=== PATIENT | female | born 1940 | race Caucasian/White ===

== ENCOUNTER 2017-03-11 14:07 | Emergency (ER) | payer MEDICARE, MEDICAID ==
[~2017-03-11] VITALS: Ht 162.6 cm; Wt 102.3 kg
[~2017-03-11 14:07] MED LIST: ARIP5TAB9 PO; ATEN50TA PO; ATOR20TA86 PO; LITH300C3 PO; LOSA50TA37 PO; SERT100T12 PO
[2017-03-11 15:04] LABS: BASOPHILS # (AUTO) 0.07 K/uL (0.00-0.20); BASOPHILS % (AUTO) 0.7 % (0.0-2.0); EOSINOPHILS # (AUTO) 0.24 K/uL (0.00-0.70); HEMATOCRIT 41.8 % (36-46); HEMOGLOBIN 13.8 g/dL (12.0-16.0); LYMPHOCYTES # (AUTO) 1.4 K/uL (1.0-4.8); LYMPHOCYTES % (AUTO) 12.8 % (22.0-44.0); MEAN CORPUSCULAR HEMOGLOBIN 32.2 pg (26.0-34.0); MEAN CORPUSCULAR VOLUME 97 fL (80-100); MONOCYTES # (AUTO) 0.8 K/uL (0.1-1.0); MONOCYTES % (AUTO) 7.3 % (2.0-9.0); NEUTROPHILS # (AUTO) 8.4 K/uL (1.8-7.7); NEUTROPHILS % (AUTO) 77.1 % (40.0-70.0); PLATELET COUNT (AUTO) 161 K/uL (150-450); RED BLOOD CELL COUNT(AUTO) 4.29 MIL/uL (4.00-5.20); RED CELL DISTRIBUTION WIDTH 14.4 % (11.5-14.5); WHITE BLOOD COUNT (AUTO) 10.9 K/uL (4.5-11.0)
[2017-03-11 15:19] LABS: ANION GAP 12 mmol/L (8-16); CALCIUM, TOTAL 9.3 mg/dL (8.8-10.5); CARBON DIOXIDE 24 mmol/L (22-29); CHLORIDE 108 mmol/L (98-107); CREATININE 1.01 mg/dL (0.60-1.30); GLOMERULAR FILTR. RATE CALC 53 mL/min (>60); POTASSIUM 3.7 mmol/L (3.5-5.1); SODIUM SERUM 144 mmol/L (136-145); UREA NITROGEN, BLOOD 23 mg/dL (7-18)
[2017-03-11 15:26] LABS: ALANINE AMINOTRANSFERASE 22 U/L (12-78); ALBUMIN 3.7 g/dL (3.4-5.0); ASPARTATE AMINOTRANSFERASE 27 U/L (15-37); BILIRUBIN,TOTAL 0.7 mg/dL (0.1-1.0); TOTAL PROTEIN, SERUM 7.6 g/dL (6.4-8.2)
[2017-03-11 17:15] VITALS: BP 132/86
== END 2017-03-11 17:51 | disposition home or self-care (01) ==
LOC: EMS 14:09
DX: F41.9 Anxiety disorder, unspecified (principal); H66.92 Otitis media, unspecified, left ear; F31.9 Bipolar disorder, unspecified; E78.00 Pure hypercholesterolemia, unspecified; I10 Essential (primary) hypertension
CPT/HCPCS: 36415; 80053; 85025; 99284; G0480

== ENCOUNTER 2018-03-25 18:38 | Inpatient (IN) | payer OTHER, MEDICAID ==
[~2018-03-25] VITALS: Ht 152.4 cm; Wt 89.2 kg
[~2018-03-25 18:38] MED LIST changes: +ARIP5TAB8 PO; -ARIP5TAB9 PO
[2018-03-25 19:17] LABS: BASOPHILS % (AUTO) 0.4 % (0.0-2.0); HEMATOCRIT 39.3 % (36-46); HEMOGLOBIN 13.3 g/dL (12.0-16.0); LYMPHOCYTES # (AUTO) 0.9 K/uL (1.0-4.8); LYMPHOCYTES % (AUTO) 7.1 % (22.0-44.0); MEAN CORPUSCULAR HEMOGLOBIN 32.4 pg (26.0-34.0); MEAN CORPUSCULAR HGB CONC 33.8 G/dL (31.0-37.0); MEAN CORPUSCULAR VOLUME 96 fL (80-100); MONOCYTES # (AUTO) 0.8 K/uL (0.1-1.0); MONOCYTES % (AUTO) 6.7 % (2.0-9.0); NEUTROPHILS # (AUTO) 10.5 K/uL (1.8-7.7); NEUTROPHILS % (AUTO) 84.8 % (40.0-70.0); PLATELET COUNT (AUTO) 156 K/uL (150-450); RED BLOOD CELL COUNT(AUTO) 4.11 MIL/uL (4.00-5.20); RED CELL DISTRIBUTION WIDTH 14.2 % (11.5-14.5)
[2018-03-25 19:36] LABS: CALCIUM, TOTAL 9.1 mg/dL (8.8-10.5); CREATININE 1.13 mg/dL (0.60-1.30); POTASSIUM 3.5 mmol/L (3.5-5.1)
[2018-03-25 19:42] LABS: ALBUMIN 3.2 g/dL (3.4-5.0); BILIRUBIN,TOTAL 0.4 mg/dL (0.1-1.0); TOTAL PROTEIN, SERUM 7.7 g/dL (6.4-8.2)
[2018-03-25] MEDS ORDERED: ZOLPIDEM TARTRATE 10 MG TABLET PO PRN (22:45)
[2018-03-25] MEDS ORDERED: LORazepam 2 MG TABLET PO PRN (22:45)
[2018-03-25] MEDS ORDERED: HALOPERIDOL 5 MG TABLET PO PRN (22:45)
[2018-03-26 03:05] LABS: CHOL/HDL RATIO 2.4 (3.9-5.7)
[2018-03-26 03:08] LABS: LITHIUM 0.52 mmol/L (0.60-1.20)
[2018-03-26 14:43] VITALS: BP 139/76
[2018-03-26] MEDS ORDERED: DOCUSATE SODIUM 100 MG CAPSULE PO PRN (15:00)
[2018-03-26] MEDS ORDERED: PETROLATUM,WHITE 71 GM JELLY TP PRN (15:00)
[2018-03-26] MEDS ORDERED: ALBUTEROL SULFATE HFA 90 MCG/PUFF 8 GM INHALER IH PRN (15:00)
[2018-03-26] MEDS ORDERED: LOPERAMIDE HCL 2 MG CAPSULE PO PRN (15:00)
[2018-03-26] MEDS ORDERED: ONDANSETRON HCL 4 MG TABLET PO PRN (15:00)
[2018-03-26] MEDS ORDERED: CloNIDine HCL 0.1 MG TABLET PO PRN (15:00)
[2018-03-26] MEDS ORDERED: MAGNESIUM HYDROXIDE SUSPENSION 30 ML UDCUP PO PRN (15:00)
[2018-03-26] MEDS ORDERED: ACETAMINOPHEN 325 MG TABLET PO PRN (15:00)
[2018-03-26] MEDS ORDERED: MAG HYDROX/AL HYDROX/SIMETH ES 30 ML SUSPENSION UDCUP PO PRN (15:00)
[2018-03-26] MEDS ORDERED: IBUPROFEN 400 MG TABLET PO PRN (15:00)
[2018-03-26] MEDS ORDERED: PNEUMOCOCCAL VACCINE POLYVALENT 0.5 ML VIAL [PPSV23] IM ONE (16:00)
[2018-03-26 19:30] VITALS: BP 132/81
[2018-03-26] MEDS: ZINC OXIDE 16% PASTE 57 GM TUBE TP SCH (21:05)
[2018-03-27 04:59] VITALS: BP 148/74
[2018-03-27 06:14] LABS: GLUCOMETER DEV NAME(LOC) PVLAB139; GLUCOSE,POINT OF CARE 132 MG/DL (70-110)
[2018-03-27 06:52] LABS: BASOPHILS % (AUTO) 0.3 % (0.0-2.0); EOSINOPHILS % (AUTO) 0.1 % (1.0-6.0); HEMATOCRIT 36.6 % (36-46); HEMOGLOBIN 12.8 g/dL (12.0-16.0); LYMPHOCYTES % (AUTO) 5.7 % (22.0-44.0); MEAN CORPUSCULAR HEMOGLOBIN 33.3 pg (26.0-34.0); MEAN CORPUSCULAR HGB CONC 34.9 G/dL (31.0-37.0); MEAN CORPUSCULAR VOLUME 96 fL (80-100); MONOCYTES # (AUTO) 1.1 K/uL (0.1-1.0); MONOCYTES % (AUTO) 6.3 % (2.0-9.0); NEUTROPHILS # (AUTO) 14.7 K/uL (1.8-7.7); PLATELET COUNT (AUTO) 127 K/uL (150-450); RED BLOOD CELL COUNT(AUTO) 3.84 MIL/uL (4.00-5.20); RED CELL DISTRIBUTION WIDTH 14.1 % (11.5-14.5)
[2018-03-27 06:58] LABS: NEUTROPHILS % (AUTO) 87.6 % (40.0-70.0)
[2018-03-27 07:04] LABS: HEMOGLOBIN A1C 5.3 % (4.5-6.2)
[2018-03-27 07:34] LABS: ALANINE AMINOTRANSFERASE 22 U/L (12-78); ALBUMIN 2.7 g/dL (3.4-5.0); ALKALINE PHOSPHATASE 84 U/L (46-116); ANION GAP 9 mmol/L (8-16); ASPARTATE AMINOTRANSFERASE 31 U/L (15-37); BILIRUBIN,TOTAL 0.9 mg/dL (0.1-1.0); CALCIUM, TOTAL 8.9 mg/dL (8.8-10.5); CARBON DIOXIDE 24 mmol/L (22-29); CHLORIDE 104 mmol/L (98-107); CHOLESTEROL 109 mg/dL (131-200); GLUCOSE,RANDOM 133 mg/dL (70-110); HDL CHOLESTEROL 54 mg/dL (40-60); LDL CHOL (CALC.) 44 mg/dL (0-130); POTASSIUM 3.9 mmol/L (3.5-5.1); SODIUM SERUM 137 mmol/L (136-145); THYROID STIMULATING HORMONE 0.46 uIU/mL (0.36-3.74); TOTAL PROTEIN, SERUM 7.3 g/dL (6.4-8.2); TRIGLYCERIDES 56 mg/dL (15-150); UREA NITROGEN, BLOOD 16 mg/dL (7-18)
[2018-03-27 07:35] LABS: GLOMERULAR FILTR. RATE CALC > 60 mL/min (>60)
[2018-03-27 08:02] VITALS: BP 120/56
[2018-03-27] MEDS: ZINC OXIDE 16% PASTE 57 GM TUBE TP SCH ×2 (08:10→16:57)
[2018-03-27] MEDS ORDERED: LOSARTAN POTASSIUM 50 MG TABLET PO SCH (09:00)
[2018-03-27] MEDS ORDERED: ATORVASTATIN CALCIUM 20 MG TABLET PO SCH (09:00)
[2018-03-27] MEDS ORDERED: ATENOLOL 50 MG TABLET PO SCH (09:00)
[2018-03-27 16:20] VITALS: BP 129/75
[2018-03-27] MEDS ORDERED: MIRTAZAPINE 15 MG TABLET PO SCH (21:00)
[2018-03-27 21:02] LABS: APPEARANCE,URINE TURBID (CLEAR); GLUCOSE, URINE (UA) NEGATIVE (NEGATIVE); KETONES,URINE NEGATIVE (NEGATIVE); LEUKOCYTE ESTERASE ,URINE NEGATIVE (NEGATIVE); NITRATE,URINE NEGATIVE (NEGATIVE); OCCULT BLOOD,URINE TRACE (NEGATIVE); PH,URINE 5.5 (5.0-8.0); PROTEIN,URINE POS 1+ (NEGATIVE)
[2018-03-27 21:03] LABS: AMPHET/METH SCREEN,URINE NEGATIVE (NEGATIVE); BARBITURATE SCREEN, URINE NEGATIVE (NEGATIVE); BENZODIAZEPINES SCREEN,URINE NEGATIVE (NEGATIVE); CANNABINOID SCREEN,URINE NEGATIVE (NEGATIVE); COCAINE SCREEN,URINE NEGATIVE (NEGATIVE); METHADONE SCREEN, URINE NEGATIVE (NEGATIVE); OPIATE SCREEN,URINE NEGATIVE (NEGATIVE)
[2018-03-27 21:06] LABS: PHENCYCLIDINE SCREEN,URINE NEGATIVE (NEGATIVE)
[2018-03-27 21:09] LABS: BILIRUBIN,URINE PRELIM. POSITIVE (NEGATIVE)
[2018-03-27 21:10] LABS: BACTERIA,URINE Many /HPF (None Seen)
[2018-03-27 21:14] LABS: RBC,URINE 0-2 /HPF (0-2)
[2018-03-27 21:15] LABS: AMORPHOUS SEDIMENT,UR Many /LPF (None Seen); SQUAMOUS EPITHELIAL CELL,UR None Seen /LPF (None Seen)
[2018-03-28] MEDS ORDERED: ARIPiprazole 5 MG TABLET PO SCH (09:00)
== END 2018-03-27 23:06 | disposition short-term general hospital (02) | DRG 885 ==
LOC: EMS 18:38 → AHU 03-26 13:18 → 3EX 03-26 17:48
PROVIDERS: ADMIT Psychiatry & Neurology Psychiatry; ATTEND Psychiatry & Neurology Psychiatry
DX: F25.0 Schizoaffective disorder, bipolar type (principal); D72.829 Elevated white blood cell count, unspecified; E78.5 Hyperlipidemia, unspecified; G89.29 Other chronic pain; M25.562 Pain in left knee; M25.561 Pain in right knee; E78.00 Pure hypercholesterolemia, unspecified; F41.9 Anxiety disorder, unspecified; I10 Essential (primary) hypertension; R53.81 Other malaise; Z79.899 Other long term (current) drug therapy
CPT/HCPCS: 80307; 83036; 84443; 87086; 99285

== ENCOUNTER 2018-03-27 22:45 | Inpatient (IN) | payer MEDICARE, MEDICAID ==
[~2018-03-27] VITALS: Ht 152.4 cm; Wt 96.0 kg
[2018-03-28] VITALS (7 sets, daily range): BP systolic 110–136; BP diastolic 57–69
[2018-03-28] MEDS ORDERED: ONDANSETRON HCL 4 MG/2 ML VIAL IVP PRN (01:30)
[2018-03-28] MEDS ORDERED: ALBUTEROL SULFATE 2.5 MG/0.5 ML NEB SOLUTION NEB PRN (01:30)
[2018-03-28] MEDS ORDERED: IPRATROPIUM BROMIDE 0.5 MG/2.5 ML NEB SOLUTION NEB PRN (01:30)
[2018-03-28] MEDS ORDERED: MAGNESIUM HYDROXIDE SUSPENSION 30 ML UDCUP PO PRN (01:30)
[2018-03-28] MEDS ORDERED: ZOLPIDEM TARTRATE 5 MG TABLET PO PRN (01:30)
[2018-03-28] MEDS ORDERED: MORPHINE SULFATE 2 MG/ML SYRINGE IVP PRN (01:30)
[2018-03-28] MEDS ORDERED: BISACODYL 10 MG RECTAL RECTAL SUPPOSITORY PR PRN (01:30)
[2018-03-28] MEDS ORDERED: SODIUM CHLORIDE 0.9% 250 ML IV ONE (02:00)
[2018-03-28] MEDS: LEVOFLOXACIN 500 MG/D5% WATER 100 ML IV SCH (02:04)
[2018-03-28 07:14] LABS: BASOPHILS % (AUTO) 0.3 % (0.0-2.0); EOSINOPHILS % (AUTO) 0.4 % (1.0-6.0); HEMATOCRIT 35.8 % (36-46); HEMOGLOBIN 12.1 g/dL (12.0-16.0); LYMPHOCYTES # (AUTO) 1.3 K/uL (1.0-4.8); LYMPHOCYTES % (AUTO) 7.4 % (22.0-44.0); MEAN CORPUSCULAR HEMOGLOBIN 32.3 pg (26.0-34.0); MEAN CORPUSCULAR HGB CONC 33.9 G/dL (31.0-37.0); MEAN CORPUSCULAR VOLUME 95 fL (80-100); MONOCYTES # (AUTO) 1.1 K/uL (0.1-1.0); MONOCYTES % (AUTO) 6.4 % (2.0-9.0); PLATELET COUNT (AUTO) 138 K/uL (150-450); RED BLOOD CELL COUNT(AUTO) 3.75 MIL/uL (4.00-5.20); RED CELL DISTRIBUTION WIDTH 14.2 % (11.5-14.5)
[2018-03-28 07:18] LABS: NEUTROPHILS % (AUTO) 85.5 % (40.0-70.0)
[2018-03-28 07:31] LABS: ALANINE AMINOTRANSFERASE 24 U/L (12-78); ALBUMIN 2.3 g/dL (3.4-5.0); ALKALINE PHOSPHATASE 86 U/L (46-116); ANION GAP 9 mmol/L (8-16); ASPARTATE AMINOTRANSFERASE 26 U/L (15-37); BILIRUBIN,TOTAL 0.7 mg/dL (0.1-1.0); CALCIUM, TOTAL 9.1 mg/dL (8.8-10.5); CARBON DIOXIDE 24 mmol/L (22-29); CHLORIDE 102 mmol/L (98-107); CREATININE 0.76 mg/dL (0.60-1.30); GLUCOSE,RANDOM 104 mg/dL (70-110); INR 1.1 (0.9-1.1); POTASSIUM 4.1 mmol/L (3.5-5.1); PROTHROMBIN TIME 11.4 SEC (9.4-11.6); SODIUM SERUM 135 mmol/L (136-145); TOTAL PROTEIN, SERUM 7.1 g/dL (6.4-8.2); UREA NITROGEN, BLOOD 20 mg/dL (7-18)
[2018-03-28 07:32] LABS: GLOMERULAR FILTR. RATE CALC > 60 mL/min (>60)
[2018-03-28 07:34] LABS: HEMOGLOBIN A1C 5.5 % (4.5-6.2)
[2018-03-28] MEDS: ATORVASTATIN CALCIUM 20 MG TABLET PO SCH (09:12)
[2018-03-28] MEDS: PANTOPRAZOLE SODIUM 40 MG DR TABLET PO SCH (09:12)
[2018-03-28] MEDS: ATENOLOL 50 MG TABLET PO SCH (12:27)
[2018-03-28] MEDS: SERTRALINE HCL 100 MG TABLET PO SCH (12:27)
[2018-03-28] MEDS: ARIPiprazole 5 MG TABLET PO SCH (12:28)
[2018-03-28] MEDS: LITHIUM CARBONATE 600 MG CAPSULE PO SCH (20:45)
[2018-03-28] MEDS: ACETAMINOPHEN 325 MG TABLET PO PRN (22:04)
[2018-03-29] VITALS (7 sets, daily range): BP systolic 95–116; BP diastolic 51–65
[2018-03-29] MEDS: HEPARIN SODIUM,PORCINE 5,000 UNITS/ML VIAL SQ SCH ×3 (00:38→15:03)
[2018-03-29] MEDS ORDERED: SODIUM CHLORIDE 0.9% 100 ML ONE (03:25)
[2018-03-29] MEDS: LEVOFLOXACIN 500 MG/D5% WATER 100 ML IV SCH (03:27)
[2018-03-29 06:31] LABS: BASOPHILS % (AUTO) 0.2 % (0.0-2.0); EOSINOPHILS % (AUTO) 1.9 % (1.0-6.0); HEMATOCRIT 33.8 % (36-46); HEMOGLOBIN 11.3 g/dL (12.0-16.0); LYMPHOCYTES # (AUTO) 1.1 K/uL (1.0-4.8); MEAN CORPUSCULAR HEMOGLOBIN 32.2 pg (26.0-34.0); MEAN CORPUSCULAR HGB CONC 33.5 G/dL (31.0-37.0); MEAN CORPUSCULAR VOLUME 96 fL (80-100); MONOCYTES # (AUTO) 0.8 K/uL (0.1-1.0); MONOCYTES % (AUTO) 5.5 % (2.0-9.0); NEUTROPHILS # (AUTO) 12.2 K/uL (1.8-7.7); NEUTROPHILS % (AUTO) 84.4 % (40.0-70.0); PLATELET COUNT (AUTO) 140 K/uL (150-450); RED BLOOD CELL COUNT(AUTO) 3.52 MIL/uL (4.00-5.20); RED CELL DISTRIBUTION WIDTH 14.4 % (11.5-14.5)
[2018-03-29 07:03] LABS: ANION GAP 7 mmol/L (8-16); CALCIUM, TOTAL 8.9 mg/dL (8.8-10.5); CARBON DIOXIDE 25 mmol/L (22-29); CHLORIDE 102 mmol/L (98-107); CHOL/HDL RATIO 3.2 (3.9-5.7); CHOLESTEROL 87 mg/dL (131-200); CREATININE 0.87 mg/dL (0.60-1.30); GLUCOSE,RANDOM 96 mg/dL (70-110); HDL CHOLESTEROL 27 mg/dL (40-60); LDL CHOL (CALC.) 47 mg/dL (0-130); POTASSIUM 3.8 mmol/L (3.5-5.1); SODIUM SERUM 134 mmol/L (136-145); THYROID STIMULATING HORMONE 1.01 uIU/mL (0.36-3.74); TRIGLYCERIDES 65 mg/dL (15-150); UREA NITROGEN, BLOOD 28 mg/dL (7-18)
[2018-03-29 07:05] LABS: GLOMERULAR FILTR. RATE CALC > 60 mL/min (>60)
[2018-03-29] MEDS: PANTOPRAZOLE SODIUM 40 MG DR TABLET PO SCH (08:52)
[2018-03-29] MEDS: ATORVASTATIN CALCIUM 20 MG TABLET PO SCH (08:52)
[2018-03-29] MEDS: ARIPiprazole 5 MG TABLET PO SCH (08:52)
[2018-03-29] MEDS: SERTRALINE HCL 100 MG TABLET PO SCH (08:52)
[2018-03-29] MEDS: ATENOLOL 50 MG TABLET PO SCH (09:00)
[2018-03-29] MEDS: ACETAMINOPHEN 325 MG TABLET PO PRN (09:15)
[2018-03-29 13:50] LABS: APPEARANCE,URINE CLOUDY (CLEAR); GLUCOSE, URINE (UA) NEGATIVE (NEGATIVE); KETONES,URINE NEGATIVE (NEGATIVE); LEUKOCYTE ESTERASE ,URINE NEGATIVE (NEGATIVE); OCCULT BLOOD,URINE TRACE (NEGATIVE); PH,URINE 5.5 (5.0-8.0); PROTEIN,URINE POS 1+ (NEGATIVE)
[2018-03-29 13:56] LABS: BILIRUBIN,URINE PRELIM. POSITIVE (NEGATIVE)
[2018-03-29 14:03] LABS: NITRATE,URINE POSITIVE (NEGATIVE)
[2018-03-29 14:05] LABS: BACTERIA,URINE Moderate /HPF (None Seen); SQUAMOUS EPITHELIAL CELL,UR Few /LPF (None Seen); WBC,URINE 0-2 /HPF (0-5)
[2018-03-29 14:44] LABS: GLUCOMETER DEV NAME(LOC) 5N 1P; GLUCOSE,POINT OF CARE 122 MG/DL (70-110)
[2018-03-29] MEDS: OXYGEN THERAPY IH SCH (20:08)
[2018-03-29] MEDS: LITHIUM CARBONATE 600 MG CAPSULE PO SCH (20:08)
[2018-03-30] MEDS: LEVOFLOXACIN 500 MG/D5% WATER 100 ML IV SCH (01:32)
[2018-03-30 05:15] VITALS: BP 109/49
[2018-03-30 07:27] VITALS: BP 108/57
[2018-03-30] MEDS: OXYGEN THERAPY IH SCH ×2 (08:38→19:47)
[2018-03-30] MEDS: HEPARIN SODIUM,PORCINE 5,000 UNITS/ML VIAL SQ SCH ×4 (08:38→23:40)
[2018-03-30] MEDS: PANTOPRAZOLE SODIUM 40 MG DR TABLET PO SCH (08:39)
[2018-03-30] MEDS: SERTRALINE HCL 100 MG TABLET PO SCH (08:39)
[2018-03-30] MEDS: ATENOLOL 50 MG TABLET PO SCH (08:39)
[2018-03-30] MEDS: ARIPiprazole 5 MG TABLET PO SCH (08:39)
[2018-03-30] MEDS: ATORVASTATIN CALCIUM 20 MG TABLET PO SCH (08:39)
[2018-03-30 11:38] VITALS: BP 113/58
[2018-03-30] MEDS ORDERED: MAGNESIUM HYDROXIDE SUSPENSION 30 ML UDCUP PO PRN (13:15)
[2018-03-30] MEDS: DOCUSATE SODIUM 100 MG CAPSULE PO SCH ×2 (14:29→19:46)
[2018-03-30 15:03] LABS: GLUCOMETER DEV NAME(LOC) 5N 1P; GLUCOSE,POINT OF CARE 105 MG/DL (70-110)
[2018-03-30 15:04] VITALS: BP 107/48
[2018-03-30] MEDS ORDERED: VITAD1000 PO (16:23)
[2018-03-30] MEDS: BENZONATATE 100 MG CAPSULE PO SCH ×2 (16:23→23:40)
[2018-03-30] MEDS: GuaiFENesin/D-METHORPHAN/PHENYLEPH 5 ML LIQUID ORAL.SYG PO PRN (18:43)
[2018-03-30] MEDS: LITHIUM CARBONATE 600 MG CAPSULE PO SCH (19:46)
[2018-03-30 19:58] VITALS: BP 129/62
[2018-03-31 00:02] VITALS: BP 119/67
[2018-03-31] MEDS: GuaiFENesin/D-METHORPHAN/PHENYLEPH 5 ML LIQUID ORAL.SYG PO PRN ×2 (00:19→13:36)
[2018-03-31] MEDS: LEVOFLOXACIN 500 MG/D5% WATER 100 ML IV SCH (01:33)
[2018-03-31 04:14] VITALS: BP 112/86
[2018-03-31] MEDS: ACETAMINOPHEN 325 MG TABLET PO PRN (04:18)
[2018-03-31 06:00] LABS: BASOPHILS % (AUTO) 0.4 % (0.0-2.0); EOSINOPHILS % (AUTO) 3.9 % (1.0-6.0); HEMATOCRIT 34.2 % (36-46); HEMOGLOBIN 11.8 g/dL (12.0-16.0); LYMPHOCYTES % (AUTO) 12.3 % (22.0-44.0); MEAN CORPUSCULAR HEMOGLOBIN 32.8 pg (26.0-34.0); MEAN CORPUSCULAR HGB CONC 34.5 G/dL (31.0-37.0); MEAN CORPUSCULAR VOLUME 95 fL (80-100); MONOCYTES # (AUTO) 0.6 K/uL (0.1-1.0); MONOCYTES % (AUTO) 7.1 % (2.0-9.0); NEUTROPHILS # (AUTO) 6.3 K/uL (1.8-7.7); NEUTROPHILS % (AUTO) 76.3 % (40.0-70.0); PLATELET COUNT (AUTO) 176 K/uL (150-450); RED BLOOD CELL COUNT(AUTO) 3.59 MIL/uL (4.00-5.20); RED CELL DISTRIBUTION WIDTH 13.9 % (11.5-14.5)
[2018-03-31 06:14] LABS: ANION GAP 7 mmol/L (8-16); CALCIUM, TOTAL 8.9 mg/dL (8.8-10.5); CARBON DIOXIDE 27 mmol/L (22-29); CHLORIDE 99 mmol/L (98-107); CREATININE 0.73 mg/dL (0.60-1.30); GLUCOSE,RANDOM 96 mg/dL (70-110); POTASSIUM 4.2 mmol/L (3.5-5.1); SODIUM SERUM 133 mmol/L (136-145); UREA NITROGEN, BLOOD 15 mg/dL (7-18)
[2018-03-31 06:17] LABS: GLOMERULAR FILTR. RATE CALC > 60 mL/min (>60)
[2018-03-31 07:27] VITALS: BP 104/53
[2018-03-31] MEDS: OXYGEN THERAPY IH SCH ×2 (08:44→19:41)
[2018-03-31] MEDS: OxyCODONE HCL/ACETAMINOPHEN 5-325 MG TABLET PO PRN ×2 (08:45→20:14)
[2018-03-31] MEDS: HEPARIN SODIUM,PORCINE 5,000 UNITS/ML VIAL SQ SCH ×3 (08:45→23:06)
[2018-03-31] MEDS: ATENOLOL 50 MG TABLET PO SCH (08:45)
[2018-03-31] MEDS: DOCUSATE SODIUM 100 MG CAPSULE PO SCH ×2 (08:45→19:41)
[2018-03-31] MEDS: ARIPiprazole 5 MG TABLET PO SCH (08:45)
[2018-03-31] MEDS: SERTRALINE HCL 100 MG TABLET PO SCH (08:46)
[2018-03-31] MEDS: PANTOPRAZOLE SODIUM 40 MG DR TABLET PO SCH (08:46)
[2018-03-31] MEDS: ATORVASTATIN CALCIUM 20 MG TABLET PO SCH (08:46)
[2018-03-31] MEDS: BENZONATATE 100 MG CAPSULE PO SCH ×3 (08:46→23:06)
[2018-03-31] MEDS ORDERED: DSS100 PO (10:40)
[2018-03-31] MEDS ORDERED: BENZ-51 PO (10:40)
[2018-03-31] MEDS ORDERED: HEPA500018 SQ (10:42)
[2018-03-31] MEDS ORDERED: LEVO250 PO (10:43)
[2018-03-31] MEDS ORDERED: PANT40TA25 PO (10:44)
[2018-03-31] MEDS ORDERED: oxy NASAL (10:45)
[2018-03-31] MEDS ORDERED: oxygen NASAL (10:48)
[2018-03-31] MEDS ORDERED: ACET-784 PO (10:50)
[2018-03-31] MEDS ORDERED: AUD NEB (10:50)
[2018-03-31] MEDS ORDERED: BISA5TAB12 PO (10:51)
[2018-03-31] MEDS ORDERED: IPRNEB IH (10:52)
[2018-03-31] MEDS ORDERED: GUAIFCF5L PO (10:52)
[2018-03-31] MEDS ORDERED: MOM30 PO (10:53)
[2018-03-31] MEDS ORDERED: OXYC-38 PO (10:54)
[2018-03-31 11:18] VITALS: BP 101/49
[2018-03-31 15:24] VITALS: BP 110/65
[2018-03-31] MEDS: LITHIUM CARBONATE 600 MG CAPSULE PO SCH (19:41)
[2018-03-31 20:02] VITALS: BP 101/61
[2018-04-01] VITALS (7 sets, daily range): BP systolic 97–116; BP diastolic 45–64
[2018-04-01] MEDS: LEVOFLOXACIN 500 MG/D5% WATER 100 ML IV SCH (01:36)
[2018-04-01] MEDS: OXYGEN THERAPY IH SCH ×2 (08:12→20:08)
[2018-04-01] MEDS: BENZONATATE 100 MG CAPSULE PO SCH ×3 (08:13→23:04)
[2018-04-01] MEDS: ATORVASTATIN CALCIUM 20 MG TABLET PO SCH (08:13)
[2018-04-01] MEDS: SERTRALINE HCL 100 MG TABLET PO SCH (08:13)
[2018-04-01] MEDS: HEPARIN SODIUM,PORCINE 5,000 UNITS/ML VIAL SQ SCH ×3 (08:13→23:04)
[2018-04-01] MEDS: ARIPiprazole 5 MG TABLET PO SCH (08:13)
[2018-04-01] MEDS: DOCUSATE SODIUM 100 MG CAPSULE PO SCH ×2 (08:13→20:08)
[2018-04-01] MEDS: PANTOPRAZOLE SODIUM 40 MG DR TABLET PO SCH (08:13)
[2018-04-01] MEDS: ATENOLOL 25 MG TABLET PO SCH (08:14)
[2018-04-01] MEDS: LITHIUM CARBONATE 600 MG CAPSULE PO SCH (20:08)
[2018-04-02] MEDS: LEVOFLOXACIN 500 MG/D5% WATER 100 ML IV SCH (00:55)
[2018-04-02 05:35] VITALS: BP 114/56
[2018-04-02 07:32] VITALS: BP 117/57
[2018-04-02] MEDS: OXYGEN THERAPY IH SCH ×2 (08:00→20:32)
[2018-04-02] MEDS: BENZONATATE 100 MG CAPSULE PO SCH ×3 (08:25→23:22)
[2018-04-02] MEDS: PANTOPRAZOLE SODIUM 40 MG DR TABLET PO SCH (08:26)
[2018-04-02] MEDS: SERTRALINE HCL 100 MG TABLET PO SCH (08:26)
[2018-04-02] MEDS: ATORVASTATIN CALCIUM 20 MG TABLET PO SCH (08:26)
[2018-04-02] MEDS: HEPARIN SODIUM,PORCINE 5,000 UNITS/ML VIAL SQ SCH ×3 (08:27→23:22)
[2018-04-02] MEDS: ARIPiprazole 5 MG TABLET PO SCH (08:27)
[2018-04-02] MEDS: DOCUSATE SODIUM 100 MG CAPSULE PO SCH ×2 (08:27→20:32)
[2018-04-02] MEDS: ATENOLOL 25 MG TABLET PO SCH (08:28)
[2018-04-02 11:30] VITALS: BP 110/64
[2018-04-02 15:20] VITALS: BP 115/48
[2018-04-02] MEDS: LITHIUM CARBONATE 600 MG CAPSULE PO SCH (20:32)
[2018-04-02 21:21] VITALS: BP 123/60
[2018-04-02] MEDS: ACETAMINOPHEN 325 MG TABLET PO PRN (22:16)
[2018-04-03 00:16] VITALS: BP 122/66
[2018-04-03] MEDS: LEVOFLOXACIN 500 MG/D5% WATER 100 ML IV SCH (01:05)
[2018-04-03] MEDS ORDERED: SODIUM CHLORIDE 0.9% 250 ML IV ONE (01:07)
[2018-04-03 04:38] VITALS: BP 107/54
[2018-04-03 05:49] LABS: BASOPHILS % (AUTO) 0.6 % (0.0-2.0); EOSINOPHILS % (AUTO) 3.8 % (1.0-6.0); HEMATOCRIT 35.4 % (36-46); HEMOGLOBIN 12.1 g/dL (12.0-16.0); LYMPHOCYTES # (AUTO) 1.3 K/uL (1.0-4.8); LYMPHOCYTES % (AUTO) 14.8 % (22.0-44.0); MEAN CORPUSCULAR HEMOGLOBIN 32.5 pg (26.0-34.0); MEAN CORPUSCULAR HGB CONC 34.3 G/dL (31.0-37.0); MEAN CORPUSCULAR VOLUME 95 fL (80-100); MONOCYTES # (AUTO) 0.7 K/uL (0.1-1.0); MONOCYTES % (AUTO) 8.4 % (2.0-9.0); NEUTROPHILS # (AUTO) 6.1 K/uL (1.8-7.7); NEUTROPHILS % (AUTO) 72.4 % (40.0-70.0); PLATELET COUNT (AUTO) 219 K/uL (150-450); RED BLOOD CELL COUNT(AUTO) 3.74 MIL/uL (4.00-5.20); RED CELL DISTRIBUTION WIDTH 14.1 % (11.5-14.5)
[2018-04-03 06:09] LABS: ANION GAP 8 mmol/L (8-16); CALCIUM, TOTAL 9.3 mg/dL (8.8-10.5); CARBON DIOXIDE 27 mmol/L (22-29); CHLORIDE 99 mmol/L (98-107); CREATININE 0.79 mg/dL (0.60-1.30); GLUCOSE,RANDOM 123 mg/dL (70-110); POTASSIUM 3.9 mmol/L (3.5-5.1); SODIUM SERUM 134 mmol/L (136-145); UREA NITROGEN, BLOOD 15 mg/dL (7-18)
[2018-04-03 06:31] LABS: GLOMERULAR FILTR. RATE CALC > 60 mL/min (>60)
[2018-04-03 07:37] VITALS: BP 110/62
[2018-04-03] MEDS: SERTRALINE HCL 100 MG TABLET PO SCH (07:52)
[2018-04-03] MEDS: ATORVASTATIN CALCIUM 20 MG TABLET PO SCH (07:53)
[2018-04-03] MEDS: OXYGEN THERAPY IH SCH (07:53)
[2018-04-03] MEDS: PANTOPRAZOLE SODIUM 40 MG DR TABLET PO SCH (07:53)
[2018-04-03] MEDS: DOCUSATE SODIUM 100 MG CAPSULE PO SCH (07:53)
[2018-04-03] MEDS: ARIPiprazole 5 MG TABLET PO SCH (07:53)
[2018-04-03] MEDS: OxyCODONE HCL/ACETAMINOPHEN 5-325 MG TABLET PO PRN (07:53)
[2018-04-03] MEDS: HEPARIN SODIUM,PORCINE 5,000 UNITS/ML VIAL SQ SCH (07:53)
[2018-04-03] MEDS: BENZONATATE 100 MG CAPSULE PO SCH (07:53)
[2018-04-03] MEDS: ATENOLOL 25 MG TABLET PO SCH (07:56)
[2018-04-03 11:21] VITALS: BP 108/66
[2018-04-03 15:10] VITALS: BP 111/68
== END 2018-04-03 15:55 | disposition home or self-care (01) | DRG 871 ==
LOC: 5N 22:45
PROVIDERS: ADMIT Internal Medicine; ATTEND Internal Medicine
DX: A41.9 Sepsis, unspecified organism (principal); J18.9 Pneumonia, unspecified organism; J90 Pleural effusion, not elsewhere classified; N39.0 Urinary tract infection, site not specified; J96.11 Chronic respiratory failure with hypoxia; Z68.41 Body mass index [BMI] 40.0-44.9, adult; R62.7 Adult failure to thrive; D69.6 Thrombocytopenia, unspecified; I10 Essential (primary) hypertension; E78.5 Hyperlipidemia, unspecified; M19.90 Unspecified osteoarthritis, unspecified site; J44.9 Chronic obstructive pulmonary disease, unspecified; K80.20 Calculus of gallbladder without cholecystitis without obstruction; F25.0 Schizoaffective disorder, bipolar type; E66.01 Morbid (severe) obesity due to excess calories; F41.9 Anxiety disorder, unspecified; J84.10 Pulmonary fibrosis, unspecified; Z79.899 Other long term (current) drug therapy
CPT/HCPCS: 71250; 76604; 82306; 83036; 83735; 84100; 84443; 87086; 93306; 97163; 97530; J1644; J1956; J7050